=== PATIENT | female | born 2000 | race Caucasian/White ===

== ENCOUNTER 2019-12-01 15:26 | Emergency (ER) | payer MEDICAID ==
[~2019-12-01] VITALS: Ht 152.4 cm; Wt 54.4 kg
[2019-12-01 15:40] VITALS: BP_SYST 133
[2019-12-01 15:55] VITALS: BP_SYST 131
== END 2019-12-01 15:55 ==
LOC: SED 15:26
DX: I10 Essential (primary) hypertension (principal); Z88.1 Allergy status to other antibiotic agents
CPT/HCPCS: 99283